=== PATIENT | male | born 1990 | race Caucasian/White ===

== ENCOUNTER → 2021-09-02 14:50 | Outpatient (BNVA) | payer BC, SELFPAY | PROVIDERS: Family Provider Family Medicine; PCP Nurse Practitioner Family; Visit Provider Registered Nurse Neonatal Intensive Care | DX: S99.911A Unspecified injury of right ankle, initial encounter (principal); W18.42XA Slipping, tripping and stumbling without falling due to stepping into hole or opening, initial encounter | CPT/HCPCS: 73610 ==

== ENCOUNTER 2021-09-06 09:52 | Day surgery (SDC) | payer BC, SELFPAY ==
[2021-09-04 11:25] VITALS: BMI 34.4
[2021-09-06] VITALS (14 sets, daily range): BP systolic 102–147; BP diastolic 72–106; PULSE 68–86; RESP 16–19; TEMP 36.2–36.9; O2SAT 90–99
[2021-09-06] MEDS: sodium chloride 0.9% 1,000 ML 30 ML IV (10:20)
[2021-09-06 11:33] LABS: Anion Gap 17.6 (5-19); Blood Urea Nitrogen 20 mg/dL (6-20); Calcium 9.8 mg/dL (8.5-10.5); Carbon Dioxide 23 mmol/L (22-29); Chloride 105 mmol/L (98-107); Glomerular Filtration Rate 98.4 mL/min (90-130); Glucose 108 mg/dL (65-115); Osmolality Calculated 295 mOsm/kg (285-295); Potassium 4.6 mmol/L (3.5-5.1); Sodium 141 mmol/L (136-145)
--- NOTE | 2021-09-06 11:42 | ANES.PREANE2 ---
Pre-Anesthetic Assessment Height/Weight: Height 1.7 m Weight 99.79 kg Temp Pulse Resp BP Pulse Ox 97.5 F L 77 16 136/87 98 09/06/21 10:05 09/06/21 10:05 09/06/21 10:05 09/06/21 10:05 09/06/21 10:05 Preop Diagnosis: Right knee Lundberg's cyst Operation Date: 09/06/21 11:30 Proposed Procedures p Knee Arthroscopy right with bakers cyst removal 68343/bakers cyst knee/M71.20(Right) - Aleks Flynn MD Familial anesthetic complications: None Was Beta Es taken within 24 hours: N/A Was Clonidine taken within 24 hours: N/A Last intake: Intake Last Liquid Date 09/05/21 Last Liquid Time 18:00 Last Solid Date 09/05/21 Last Solid Time 18:00 Social No alcohol and No tobacco Exam alert, oriented x 3, clear to auscultation bilaterally and regular rate & rhythm Airway Mallampati: Class III Dentition: chipped Pulmonary None reported CV/HEM Hypertension None reported Hepatic None reported GI None reported Metabolic None reported Musc/skel None reported Neuropsych None reported Anesthetic Plan ASA status: 2 Anesthesia: General Risk of > 500 ml blood loss (7ml/kg in children): No Medications/Allergies Home Medications Medication Instructions Recorded Confirmed Last Taken Type hydrochlorothiazide 12.5 mg capsule 12.5 mg PO DAILY 08/08/21 09/06/21 09/05/21 08:00 History lisinopril 20 mg tablet 20 mg PO DAILY 08/08/21 09/06/21 09/05/21 08:00 History sertraline 25 mg tablet (Zoloft) 25 mg PO DAILY 09/02/21 09/06/21 09/05/21 21:00 History Allergies Allergy/AdvReac Type Severity Reaction Status Date / Time Penicillins Allergy Unknown Verified 09/04/21 11:24 Sulfa (Sulfonamide Allergy Unknown Verified 09/04/21 11:24 Antibiotics) Current Medications Generic Name Dose Route Start Last Admin Trade Name Freq PRN Reason Stop Dose Admin Sodium Chloride 1,000 mls @ 30 mls/hr 09/06/21 10:15 09/06/21 10:20 Sodium Chloride 0.9% IV 09/07/21 10:14 30 mls/hr .Q24H MG Administration PFSH Anesthesia Social History Smoking and tobacco status: never smoked Data Anesthesia : 09/06/21 10:15 BMP 09/06/21 10:15 Sodium 141 Potassium 4.6 Chloride 105 Carbon Dioxide 23 BUN 20 Creatinine 0.9 Glucose 108 Calcium 9.8 Cardiac Studies: No Data to Display
--- NOTE | 2021-09-06 12:18 | W.PM.OPSUD ---
Surgery/Procedure H&P Update DATE OF PROCEDURE: September 06, 2021 DATE H&P PERFORMED: 09/02/21 H&P UPDATE INFORMATION: I have reviewed H&P completed within last 30 days PREOP DIAGNOSIS: Right knee Lundberg's cyst PLANNED PROCEDURE: Operation Date: 09/06/21 11:30 Proposed Procedures p Knee Arthroscopy right with bakers cyst removal 33535/bakers cyst knee/M71.20(Right) - Aleks Flynn MD
[2021-09-06] MEDS: morphine 4 mg/mL SDV 1 mL 8 MG XX (13:01)
--- NOTE | 2021-09-06 13:25 | P.OP_ITS ---
Operative Report Date of procedure: September 06, 2021 Pre-op diagnosis: Preop Diagnosis Right knee Lundberg's cyst Procedure done: Arthroscopic decompression Lundberg's cyst right knee Pathology: none sent Anesthesia: General Estimated blood loss (mL): 2 Brief History: Twan is a 31-year-old male with a 15-year history of pain and swelling in his right posterior medial knee. He elected arthroscopic decompression assist to improve pain Procedure: The patient was taken the operating room and given a general anesthesia. His right lower extremity was prepped and draped in the usual fashion with a tourniquet on the right thigh. The tourniquet was never inflated. The knee was infiltrated with 30 cc of 0.25% Marcaine and 8 mg of morphine. A timeout was performed. The knee was entered through a standard inferior medial and inferior lateral portal. The diagnostic portion of the arthroscopy was performed. There is some subtle softening and fibrillation over the medial femoral condyle involving the most superficial cartilage but otherwise the knee it was free of chondromalacia. His menisci were intact and healthy. The scope was then driven from the medial portal but to lean the posterior cruciate ligament and medial femoral condyle into the posterior joint. The posterior capsule was visualized. A spinal needle was introduced through the posterior medial joint and a scalpel blade was used to form a posterior medial portal. An incisor shaver initially allowed removal of multiple bouts of blood obstructing visualization. A large medial flap of of redundant synovium was identified. The [employer] Werewolf was introduced through the medial portal and this redundant synovial flap debrided back revealing a small rent in the capsule. This was opened up with the werewolf until thicker yellow fluid consistent with a Lundberg's cyst was identified. Through that rent a small probe was passed into the back palpable Lundberg's cyst cyst. With pressure on the Lundberg's cyst the cyst was felt to decompress an adequate window in the posterior capsule was thought to be formed. Arthroscopy equipment is removed. Portals were closed with 3-0 Prolene. Enrique rile dressings were applied. The patient was extubated and taken to recovery in stable condition.
[2021-09-06] MEDS: fentaNYL 50 mcg/mL INJ 2mL IVP ×2 (13:37→13:47)
[2021-09-06] MEDS: HYDROcodone-acetaminophen 5-325 mg Tablet 1 TAB PO (14:34)
== END 2021-09-06 14:40 | disposition home or self-care (01) ==
PROVIDERS: Anesthesiology; PCP Nurse Practitioner Family; Visit Provider Orthopaedic Surgery
PROC: (CPT 29870; principal; 2021-09-06 11:20)
DX: M71.22 Synovial cyst of popliteal space [Baker], left knee (principal)
CPT/HCPCS: 27345; 80048; J0690; J2250; J2270; J2704; J3010; J3490; J7030